=== PATIENT | male | born 1990 | race Caucasian/White ===

== ENCOUNTER 2017-11-26 19:11 | Emergency (ER) | payer OTHER, MEDICAID, SELFPAY ==
[2017-11-26 19:12] VITALS: BP 151/101; PULSE 89; RESP 20; TEMP 36.7; O2SAT 95; BMI 37.1
--- NOTE | 2017-11-26 20:02 | CT_ITS ---
STUDY: CT BRAIN WITHOUT CONTRAST REASON FOR EXAM: Male, 27 years old. TOPETE X 4 DAYS, CP AND STRESS, HX HTN RADIATION DOSAGE (If Supplied By Facility): CTDIvol = ( 44.99 ) mGy, DLP = ( 829.85 ) mGycm TECHNIQUE: Transaxial CT imaging of the brain was performed without administration of intravenous contrast material. Individualized dose optimization techniques were used for this CT. COMPARISON: 04.09.17 FINDINGS: Normal soft tissue structures. Normal calvarium. Normal size ventricles and extra-axial spaces for the patient's age. Normal white matter tracts of the cerebral hemispheres. Normal basal ganglia and thalami. Normal brainstem. Normal cerebellum. There is no intracranial hemorrhage. There are no findings of an acute ischemic infarction. Normal visualized paranasal sinuses. CT/Brain/Head without Contrast IMPRESSION: Normal unenhanced CT scan of the brain. Electronically Signed: Suleiman Delgado MD at 21:00 EDT , Service support ,
[2017-11-26 20:24] LABS: Absolute Lymphocyte Count 2.53 X10^3/ul (0.83-4.51); Absolute Neutrophil Count 6.1 X10^3/uL (2.0-7.7); Basophil# 0.02 X10^3/uL; Basophil% 0.2 % (0-1); Eosinophils% 3.1 % (0-5); Hematocrit 47.5 % (40-54); Hemoglobin 15.8 g/dl (13.0-16.5); Lymphocyte # 2.53 X10^3/ul (4.0); Lymphocyte % 26.3 % (19-41); Mean Corp Hgb Conc 33.3 g/gl (32-36); Mean Corpuscular Hgb 30.5 pg (27.0-32.0); Mean Corpuscular Volume 91.7 fL (80-94); Mean Platelet Vol. 9.2 fl (6.2-12.0); Monocyte% 7.3 % (0-10); Neutrophil # 6.06 X10^3/uL (2.7-7.7); Neutrophil % 62.9 % (47-70); POSITIVE COUNT NO; POSITIVE DIFFERENTIAL NO; POSITIVE MORPHOLOGY NO; Platelet Count 229 K/mm3 (150-450); RBC Distribution Width CV 13.4 % (11.6-14.6); RBC Distribution Width SD 44.4 fl (35.1-43.9); Red Blood Count 5.18 M/mm3 (4.6-6.2); White Blood Count 9.6 K/mm3 (4.4-11.0)
--- NOTE | 2017-11-26 20:28 | EKG12_ITS ---
Test Reason : CP Blood Pressure : / mmHG Vent. Rate : 066 BPM Atrial Rate : 066 BPM P-R Int : 164 ms QRS Dur : 104 ms QT Int : 382 ms P-R-T Axes : 045 046 037 degrees QTc Int : 400 ms Normal sinus rhythm Normal ECG Confirmed by NANDO RANGEL, MISSAEL ([id number]), assignment editor WESTON TALAMNATES ([id number]) on 12/05/2017 2:53:55 PM Referred By: MARY ANN Confirmed By:MISSAEL COLLIER MD
[2017-11-26] MEDS: Ketorolac 30 MG/ML Syringe IV (20:29)
[2017-11-26] MEDS: 0.9% Normal Saline 1,000 ML 999 ML IV (20:29)
[2017-11-26 20:50] LABS: Anion Gap 7 (5-15); BUN 13 mg/dL (7-18); Calcium,Total 8.7 mg/dL (8.5-10.1); Chloride 107 mmol/L (98-107); Creatinine, Serum 0.93 mg/dL (0.70-1.30); EST Glomerular Filtration Rate 103 mL/min (>60); Est Glom Filt Rate - Afr Amer 125 mL/min (>60); Estimated Creatinine Clearance 150.36 ml/min; Glucose 89 mg/dL (74-106); Potassium 4.3 mmol/L (3.5-5.1); Sodium Level 143 mmol/L (136-145)
--- NOTE | 2017-11-26 21:28 | ED.DCSUM_ITS ---
- ER Visit Summary Date of Service: 11/26/17 Chief Complaint: Headache and chest pain History of Present Illness: The patient is a 27 M presenting for evaluation secondary to headache and chest pain. Patient states over the course last 5 days he has developed a occipital headache that was gradual onset and it has been continuous and throbbing. Associated with some photophobia and lightheadedness. Patient denies any recent head injuries. Denies any neck stiffness skin rashes visual changes numbness or weakness. Patient states that today he seemed to develop some anterior chest pain at about 1400. It is worse with palpation with taking a deep breath and feels consistent with when he had costochondritis in the past. Patient denies any cardiovascular risk factors. Review of systems otherwise negative. Physical Examination: Vital signs: Within normal limits General: Well-nourished well-developed no acute distress Head: Normocephalic atraumatic, no temporal artery tenderness or vesicular rash noted. No sinus tenderness to percussion. Eyes: PERRLA, EOMI. Direct funduscopy shows no evidence of hemorrhage or papilledema. Neck: Supple, no lymphadenopathy, no JVD no meningismus. Negative Brudzinski, Kernig, jolt, and heel strike Cardiovascular: Heart regular rate and rhythm no murmurs Respiratory: Lung sounds clear to auscultation bilaterally no respiratory distress Abdomen: Soft, nontender Extremities: Nontender, no edema Skin: Normal color, no rash, no evidence of petechia Neuro: Alert and oriented ?4, cranial nerves II through XII intact, normal strength, sensation Test Results: EKG shows a sinus rhythm at [address] segments normal T waves. CBC chemistry troponin negative. CT brain found to be negative Emergency Department Course and Treatment: Patient presented with a headache and chest pain. He was evaluated with an EKG and blood work there were found to be unremarkable on the CT brain that was found to be unremarkable. Patient was treated with Imitrex and Toradol. He did have improvement on subsequent reexamination. At this point the patient's SYMONE risk score is 1 for potentially undertreated hypertension, I do not believe he requires admission for chest pain as this seems rather atypical a very reproducible and similar to costochondritis. His headache seems consistent with migraine headache. Patient was discharged with continued conservative management Disposition: Discharge Impression: 1. Migraine headache 2. Chest wall pain This note was generated with Dragon dictation software. It may contain incorrect words, spelling, and punctuation that were not noted in review of the chart prior to signing ED Disposition - Plan for ED Patient: Disposition: Home or Assisted Living Chief Complaint: Headache Diagnosis: Chest pain, Headache Instructions: ED Chest Pain Costochondritis, ED Headache Migraine Prescriptions: Metoclopramide [Reglan] 10 mg PO 4X/DAY PRN #20 tab PRN Reason: Headache Referrals: Crystal Tellez, TRACTOR CRANE OPERATOR-C [Primary Care Provider] - 3-5 Days if not improving
[2017-11-26] MEDS: SUMAtriptan 6 MG/0.5 ML Vial SC (21:49)
[2017-11-26 22:08] VITALS: BP 159/97; PULSE 65; RESP 17
== END 2017-11-26 22:09 | disposition home or self-care (01) ==
PROVIDERS: Emergency Provider Emergency Medicine; Family Provider Nurse Practitioner Family; PCP Nurse Practitioner Family
DX: G43.909 Migraine, unspecified, not intractable, without status migrainosus (principal); R07.89 Other chest pain
CPT/HCPCS: 70450; 80048; 84484; 85025; 93005; 96361; 96372; 96374; 99283; J7030; A4216; J3030

== ENCOUNTER 2019-06-21 08:41 | Emergency (ER) | payer OTHER, SELFPAY ==
[2019-06-21 08:43] VITALS: BP 165/97; PULSE 79; RESP 17; TEMP 36.2; O2SAT 98; BMI 38.9
--- NOTE | 2019-06-21 08:55 | ED.VIS.GEN ---
History of Present Illness Chief Complaint: Chest Pain Informant: Patient Onset: Today Context: Sudden Onset Timing: Intermittent Current Severity: Severe Worsened by: deep breathing Relieved by: nothing Narrative: Patient is a 29-year-old male with history of hypertension, currently on any medications presenting with headache and chest pain. Patient states he was at work since 5 AM. 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 He suddenly developed a frontal headache. He then also developed chest pain. He states it is like a pressure in the center of his chest. It is present for a couple minutes and then goes away. Deep breathing does seem to make it worse. He states he is never had anything like this before. He has had headaches in the past but never like this. He denies any vision changes. He denies any swelling of his legs, recent travel or history of DVT/PE. He is not on any hormonal medications. He denies any recent cold symptoms. He denies any cough. He feels short of breath with the chest tightness. He denies any other complaints at this time. He denies any recent illnesses. Past Medical History - Allergies and Home Meds Allergies/Adverse Reactions: Allergies No Known Allergies Allergy (Verified 06/21/19 08:42) Primary Care Physician: Crystal Tellez NP-C [Primary Care Provider] - Past Medical History: - - Hypertension Smoking Status: Never smoker Review of Systems Cardiovascular: Reports: Chest pain Respiratory: Reports: Dyspnea Neurological: Reports: Headache Physical Exam Vital Signs/Narrative: Vital Signs Temp Pulse Resp BP Pulse Ox 06/21/19 08:43 97.1 F L 79 17 165/97 H 98 Inital Vital Signs reviewed: Yes General: Well nourished, Well developed, No Acute Distress Head: Normocephalic, Atraumatic Eyes: Perrl, EOMI ENT: Moist mucous membranes, No rhinorrhea Neck: Supple, Nontender Cardiovascular: Regular rate, Regular rhythm, No murmurs Respiratory: No distress, CTA bilaterally, Chest tenderness - sternal area Abdomen: Soft, Nontender, Nondistended, Normal bowel sounds Back: Nontender, Normal Inspection Extremities: Nontender, No edema Skin: Normal color, No rash Neurological: Alert, Oriented x3, Cranial nerves II-XII grossly intact, Normal Strength, Normal Sensation Psychological: Normal affect, Normal Mood Diagnostic/Tx/Re-eval Chest X-Ray - ED: 2 View, Read by ED Physician, Read by Radiologist, No Acute Disease Laboratory Data 06/21/19 06/21/19 09:04 09:04 WBC 7.8 RBC 5.15 Hgb 15.4 Hct 46.2 MCV 89.7 MCH 29.9 MCHC 33.3 RDW Std Deviation 41.4 RDW Coeff of David 12.6 Plt Count 243 MPV 9.0 Immature Gran % (Auto) 0.400 Neut % (Auto) 55.1 Lymph % (Auto) 31.8 Davidson % (Auto) 6.4 Eos % (Auto) 5.9 H Baso % (Auto) 0.4 Absolute Neuts (auto) 4.3 Absolute Lymphs (auto) 2.48 Nucleated RBC % 0 Sodium 139 Potassium 4.3 Chloride 108 H Carbon Dioxide 27.0 Anion Gap 4 L BUN 13 Creatinine 0.92 Estim Creat Clear Calc 145.45 Est GFR (MDRD) Af Amer 125 Est GFR (MDRD) Non-Af 103 BUN/Creatinine Ratio 14.1 Glucose 98 Calcium 9.0 Troponin I < 0.015 - Rhythm Strip Rhythm Strip: Sinus Rhythm Rate: 68 Ectopy: None - EKG Initial EKG Interpretation: Sinus Rhythm, - - Normal sinus rhythm Normal intervals Normal axis Normal ST segments - Medical Decision Making She is evaluated for chest pain that occurred this morning while at work. He also has associated headache. He has normal neurologic exam. Vital signs are significant for hypertension. Patient is initially given morphine for his pain. Lab work including EKG and troponin are normal. Patient is low risk for ACS with a SYMONE score of 4. Discussed heart score and delta troponin with patient. As he does have hypertension, obesity and family history of ACS he elects to stay for delta troponin. Repeat troponins also negative. Patient is improvement of his pain with the emergency room. I suspect his pain is costochondritis versus pleurisy. Patient is PE RC negative and I do not suspect PE. D-dimer is not obtained because he is PE RC negative. Patient is given a work note for today. He is encouraged to rest. He is instructed to follow-up with his primary care provider as he might need to restart his lisinopril. Patient is improvement of his headache with Toradol and fluids. Patient is counseled on signs and symptoms requiring return to the emergency room. Patient verbalizes agreement and understand this plan. Patient discharged home in stable and improved condition. ED Disposition - Plan for ED Patient: Disposition: Home or Assisted Living Diagnosis: Chest pain, Headache Instructions: CHEST PAIN, Uncertain Cause, HEADACHE, Unspecified Referrals: Crystal Tellez NP-C [Primary Care Provider] - Additional Instructions: I do not think your chest pain was cardiac related or associated with a heart attack today. Please follow-up with your primary care provider as you might need to restart your blood pressure medication. Return to the emergency room if you have worsening symptoms. Please go home and rest today. Drink plenty of fluids.
--- NOTE | 2019-06-21 08:58 | RAD_ITS ---
STUDY: X-RAY CHEST REASON FOR EXAM: Male, 29 years old. Chest pain TECHNIQUE: PA and lateral views of the chest. COMPARISON: 09/17/2017 FINDINGS: The lungs are clear and expanded. There is no demonstrated pleural abnormality. Normal size heart. Normal mediastinum and maye. Normal visualized pulmonary arteries. Normal visualized aortic arch and descending thoracic aorta. Normal visualized thoracic spine. Normal visualized ribs, clavicles, and shoulders. There is no demonstrated abnormality of the visualized soft tissue structures of the upper abdomen. RAD/Chest PA and Lateral IMPRESSION: Normal x-ray examination of the chest. Electronically Signed: Tobias López DO at 10:04 EDT Tel , Service support ,
--- NOTE | 2019-06-21 08:58 | EKG12_ITS ---
Test Reason : CP Blood Pressure : / mmHG Vent. Rate : 068 BPM Atrial Rate : 068 BPM P-R Int : 172 ms QRS Dur : 102 ms QT Int : 396 ms P-R-T Axes : 036 028 027 degrees QTc Int : 421 ms Normal sinus rhythm Normal ECG Confirmed by CHRIS RANGEL, ESTELA ([id number]), film or videotape editor FAUSTO SHETH ([id number]) on 06/23/2019 1:48:35 PM Referred By: ROXANNE Confirmed By:ESTELA PEREZ MD
--- NOTE | 2019-06-21 08:58 | CT_ITS ---
STUDY: CT BRAIN WITHOUT CONTRAST REASON FOR EXAM: Male, 29 years old. Headache RADIATION DOSAGE (If Supplied By Facility): CTDIvol = ( 60.81 ) mGy, DLP = ( 1089.89 ) mGycm TECHNIQUE: Transaxial CT imaging of the brain was performed without administration of intravenous contrast material. Individualized dose optimization techniques were used for this CT. COMPARISON: November 26, 2017 FINDINGS: Normal soft tissue structures. Normal calvarium. Normal size ventricles and extra-axial spaces for the patient's age. Normal white matter tracts of the cerebral hemispheres. Normal basal ganglia and thalami. Normal brainstem. Normal cerebellum. There is no intracranial hemorrhage. There are no findings of an acute ischemic infarction. Normal visualized paranasal sinuses. CT/Brain/Head without Contrast IMPRESSION: Normal unenhanced CT scan of the brain. Electronically Signed: Tobias López DO at 10:06 EDT Tel , Service support ,
[2019-06-21 09:15] LABS: Absolute Lymphocyte Count 2.48 X10^3/uL (0.83-4.51); Absolute Neutrophil Count 4.3 X10^3/uL (2.0-7.7); Basophil# 0.03 X10^3/uL; Basophil% 0.4 % (0-1); Eosinophil# 0.46 X10^3/uL; Eosinophils% 5.9 % (0-5); Hematocrit 46.2 % (40-54); Hemoglobin 15.4 g/dL (13.0-16.5); Lymphocyte # 2.48 X10^3/ul (4.0); Lymphocyte % 31.8 % (19-41); Mean Corp Hgb Conc 33.3 g/dL (32-36); Mean Corpuscular Hgb 29.9 pg (27.0-32.0); Mean Corpuscular Volume 89.7 fL (80-94); Monocyte% 6.4 % (0-10); NRBC Flagged by Analyzer 0 % (0-5); Neutrophil # 4.29 X10^3/uL (2.7-7.7); Neutrophil % 55.1 % (47-70); Platelet Count 243 K/mm3 (150-450); RBC Distribution Width CV 12.6 % (11.6-14.6); RBC Distribution Width SD 41.4 fl (35.1-43.9); Red Blood Count 5.15 M/mm3 (4.6-6.2); White Blood Count 7.8 K/mm3 (4.4-11.0)
[2019-06-21 09:17] VITALS: BP 118/91; PULSE 69; RESP 15; O2SAT 96
[2019-06-21] MEDS: Morphine 4 MG/ML Syringe IV (09:18)
[2019-06-21 09:33] LABS: Anion Gap 4 (5-15); BUN 13 mg/dL (7-18); BUN/Creat Ratio 14.1 RATIO (10-20); Chloride 108 mmol/L (98-107); Creatinine, Serum 0.92 mg/dL (0.70-1.30); EST Glomerular Filtration Rate 103 mL/min (>60); Est Glom Filt Rate - Afr Amer 125 mL/min (>60); Estimated Creatinine Clearance 145.45 ml/min; Glucose 98 mg/dL (74-106); Potassium 4.3 mmol/L (3.5-5.1); Sodium Level 139 mmol/L (136-145)
[2019-06-21 10:54] VITALS: BP 138/93; PULSE 50; RESP 14; O2SAT 97
[2019-06-21] MEDS: Ketorolac 15 MG/ML Vial IV (10:54)
[2019-06-21] MEDS: 0.9% Normal Saline 1,000 ML 999 ML IV (10:54)
[2019-06-21 12:02] VITALS: BP 125/69; PULSE 62; RESP 15; O2SAT 98
[2019-06-21 13:08] VITALS: BP 125/78; PULSE 57; RESP 16; O2SAT 98
== END 2019-06-21 13:09 | disposition home or self-care (01) ==
PROVIDERS: Emergency Provider Emergency Medicine; Family Provider Nurse Practitioner Family; PCP Nurse Practitioner Family
DX: R07.9 Chest pain, unspecified (principal); R51 Headache; I10 Essential (primary) hypertension
CPT/HCPCS: 70450; 71046; 80048; 84484; 85025; 93005; 96361; 96374; 96375; 99284; J7030; A4216

== ENCOUNTER 2022-09-20 09:16 | Emergency (ER) | payer MEDICAID, SELFPAY ==
[2022-09-20 09:16] VITALS: PULSE 82; RESP 18; TEMP 36.6; O2SAT 97; BMI 38.9
--- NOTE | 2022-09-20 09:30 | ED.VIS.GI ---
HPI HPI - GI History of Present Illness Chief Complaint: Abd Pain Informant: patient Narrative Narrative: Worsening upper abdominal pain since midnight. He ate [employer] last evening. Symptoms with wax and wane. Nausea with pain. Currently able to talk. Has had on and off symptoms for past few months has not had this evaluated to being self-limited. No abdominal surgeries. He started on an increase in metformin to 1000 mg twice daily 2 weeks ago for diabetes. History of hypertension. No fevers. Pain isolated currently epigastric. Patient reported half hour try to eat a small sandwich bite however pain worsened. Prior similar symptoms: Yes PFSH PFSH Home Medications atorvastatin 10 mg tablet 10 mg PO QHS 09/20/22 [History Last Taken Unknown] lisinopril 20 mg tablet 20 mg PO DAILY 09/20/22 [History Last Taken Unknown] metformin 1,000 mg tablet 1,000 mg PO BID 09/20/22 [History Last Taken Unknown] omeprazole 40 mg capsule,delayed release 40 mg PO DAILY #30 caps 09/20/22 [Rx Last Taken Unknown] ondansetron 4 mg disintegrating tablet 4 mg PO Q6H PRN nausea and vomiting #10 tabs 09/20/22 [Rx Last Taken Unknown] sertraline 25 mg tablet 25 mg PO QHS 09/20/22 [History Last Taken Unknown] Allergy/AdvReac Type Severity Reaction Status Date / Time No Known Allergies Allergy Verified 09/20/22 09:18 Social History Smoking Status: Current every day smoker tobacco type: cigarettes ROS ROS ED Constitutional Constitutional ED: Denies chills, fever(s) or sweats Eyes Eyes: Denies change in vision ENT ENT ED: Denies dysphagia or sore throat Cardiovascular Cardiovascular: Denies chest pain, leg edema, palpitations or racing heartbeat Respiratory/Chest Respiratory/Chest: Denies cough, dyspnea or dyspnea on exertion Gastrointestinal Gastrointestinal: Reports abdominal pain; Denies diarrhea, nausea or vomiting Genitourinary Genitourinary ED: Denies dysuria, hematuria or urinary frequency Musculoskeletal Musculoskeletal: Denies back pain, extremity pain or neck pain Integumentary Denies rash or wounds Neurologic Neurologic: Denies headache(s), paresthesias or weakness EXAM Physical Exam Const Vital Signs: 09/20/22 09:16 09/20/22 10:32 09/20/22 16:23 Temperature 97.9 F 97.9 F Temperature Source Temporal Oral Pulse Rate 82 71 81 Respiratory Rate 18 18 18 Blood Pressure 149/94 H 132/89 H Blood Pressure Mean 112 Pulse Ox 97 98 Oxygen Delivery Method Room Air Room Air Positive well nourished and well developed General Appearance ED: well developed and NAD HEENT Reports moist mucous membranes normocephalic and atraumatic Eyes PERRL, EOMs intact bilaterally and conjunctivae normal General Eye ED: Yes normal appearance of both eyes Neck no lymphadenopathy and supple General: Negative for tenderness Chest Wall Chest: Negative for tenderness Resp normal respiratory effort and normal air movement Effort and Inspection: symmetric chest movement; Negative for respiratory distress Cardio regular rate, regular rhythm and no murmurs Peripheral Pulses: pulses 2+ throughout GI normal to inspection, nondistended, normoactive bowel sounds GI Narrative: Tender epigastrium mild right upper quadrant. Negative McBurney's. Palpation: Negative for guarding or rebound tenderness present Back/Spine no CVA tenderness and no thoracic nor lumbar tenderness Extremity normal to inspection General Extremety ED: Negative for edema or tenderness General Extremity: Negative for edema Neuro oriented x3 and no sensory deficits noted Sensorium / Orientation: awake and alert Skin no rashes or lesions noted and no wounds MDM MDM MDM Narrative Medical decision making narrative: Patient tender to palpate epigastric right upper quadrant with no guarding or rebound. Differential includes cholecystitis versus symptomatic cholelithiasis versus gastritis, peptic ulcer or pancreatitis. Denies any bloody stools. Nonsurgical abdomen. Abdominal labs ordered and reviewed by myself all normal except for mild elevated ALT at 67 total bili 1.3 lipase was 79 normal range.. Treated with Pepcid were added Levsin. Due to patient eating prior to arrival or delay gallbladder ultrasound was obtained. This was reviewed interpreted myself and agree with radiologist findings. Results negative for acute structural findings fatty liver noted. Patient reassured on findings. Discussed likely gastritis symptoms he started on PPIs Zofran as needed. He will monitor for any bloody stools. He is given follow-up with GI as an outpatient. Return precautions. All questions were answered. Lab Data Attestation: I reviewed the patient's lab results. Labs: Laboratory Results - last 24 hr 09/20/22 09/20/22 09:44 09:44 WBC 6.9 RBC 5.13 Hgb 15.9 Hct 46.0 MCV 89.7 MCH 31.0 MCHC 34.6 RDW Std Deviation 40.5 RDW Coeff of David 12.3 Plt Count 243 MPV 9.2 Immature Gran % (Auto) 0.100 Neut % (Auto) 54.9 Lymph % (Auto) 33.6 [place]bon % (Auto) 6.2 Eos % (Auto) 4.8 Baso % (Auto) 0.4 Absolute Neuts (auto) 3.8 Absolute Lymphs (auto) 2.32 Nucleated RBC % 0 Sodium 139 Potassium 4.2 Chloride 108 H Carbon Dioxide 25.0 Anion Gap 6 BUN 12 Creatinine 0.95 Estim Creat Clear Calc 137.05 Est GFR (MDRD) Af Amer 118 Est GFR (MDRD) Non-Af 98 BUN/Creatinine Ratio 12.6 Glucose 183 H Calcium 8.8 Total Bilirubin 1.30 H Direct Bilirubin 0.29 AST 25 ALT 67 H Alkaline Phosphatase 72 Total Protein 7.2 Albumin 3.7 Globulin 3.5 Lipase 79 Radiography Diagnostic Testing: Clinical Impression(s) from Imaging Studies Gallbladder Ultrasound 09/20/22 11:37 IMPRESSION: Hepatomegaly and fatty infiltration of the liver. Electronically Signed: Timur Betancourt MD at 15:19 EST , Discharge Plan Triage Chief Complaint: Abd Pain ED Provider: Pino Van Dx/Rx/DC Orders Clinical Impression: Gastritis, Abdominal pain, Fatty liver Instructions: Abdominal Pain, ED Gastritis (Adult) Prescriptions: New omeprazole 40 mg capsule,delayed release(DR/EC) 40 mg PO DAILY Qty: 30 0RF ondansetron 4 mg tablet,disintegrating 4 mg PO Q6H PRN (Reason: nausea and vomiting) Qty: 10 0RF No Action atorvastatin 10 mg Tablet 10 mg PO QHS lisinopril 20 mg Tablet 20 mg PO DAILY metformin 1,000 mg tablet 1,000 mg PO BID Label Comments: TAKE 1 TABLET BY MOUTH TWICE A DAY sertraline 25 mg Tablet 25 mg PO QHS Primary Care Provider: Crystal Tellez NP Referrals: Freddie Newsome DO [Med Staff - Active Staff] - 1-2 Weeks Crystal Tellez PATIENT EXPERIENCE COORDINATOR, PATIENT EXPERIENCE COORDINATOR-C [Primary Care Provider] - 1 Week Activity Restrictions/Additional Instructions: Gallbladder ultrasound normal. Fatty liver on ultrasound. Labs stable. ALT 67 slightly elevated. Take medication as prescribed. Follow-up as an outpatient return if any worsening symptoms. Disposition Disposition: Home, Self Care Discharge Date/Time: 09/20/22 16:24
[2022-09-20] MEDS: 0.9% Normal Saline 1,000 ML 125 ML IV (09:50)
[2022-09-20 09:51] LABS: Absolute Lymphocyte Count 2.32 X10^3/uL (0.83-4.51); Absolute Neutrophil Count 3.8 X10^3/uL (2.0-7.7); Basophil# 0.03 X10^3/uL; Basophil% 0.4 % (0-1); Eosinophil# 0.33 X10^3/uL; Eosinophils% 4.8 % (0-5); Hemoglobin 15.9 g/dL (13.0-16.5); Lymphocyte # 2.32 X10^3/ul (0.83-4.51); Lymphocyte % 33.6 % (19-41); Mean Corp Hgb Conc 34.6 g/dL (32-36); Mean Corpuscular Volume 89.7 fL (80-94); Mean Platelet Vol. 9.2 fl (6.2-12.0); Monocyte# 0.43 X10^3/uL; Monocyte% 6.2 % (0-10); NRBC Flagged by Analyzer 0 % (0-5); Neutrophil # 3.79 X10^3/uL (2.7-7.7); Neutrophil % 54.9 % (47-70); Platelet Count 243 K/mm3 (150-450); RBC Distribution Width CV 12.3 % (11.6-14.6); RBC Distribution Width SD 40.5 fl (35.1-43.9); Red Blood Count 5.13 M/mm3 (4.6-6.2); White Blood Count 6.9 K/mm3 (4.4-11.0)
[2022-09-20] MEDS: Famotidine 200 MG/20 ML MDV 20 MG in 0.9% Normal Saline (Pres. free 8 ML 300 MG IV (09:54)
[2022-09-20 10:27] LABS: AST(SGOT) 25 U/L (15-37); Alanine Aminotransfer ALT/SGPT 67 U/L (16-61); Albumin, Serum 3.7 g/dL (3.2-5.0); Alkaline Phosphatase 72 U/L (45-117); Anion Gap 6 (5-15); BUN 12 mg/dL (7-18); BUN/Creat Ratio 12.6 RATIO (10-20); Bilirubin, Direct 0.29 mg/dL (0.00-0.30); Calcium,Total 8.8 mg/dL (8.5-10.1); Chloride 108 mmol/L (98-107); Creatinine, Serum 0.95 mg/dL (0.70-1.30); EST Glomerular Filtration Rate 98 mL/min (>60); Est Glom Filt Rate - Afr Amer 118 mL/min (>60); Estimated Creatinine Clearance 137.05 ml/min; Globulin 3.5 g/dL (2.2-4.2); Glucose 183 mg/dL (74-106); Lipase 79 U/L (73-393); Potassium 4.2 mmol/L (3.5-5.1); Protein, Total 7.2 g/dL (6.4-8.2); Sodium Level 139 mmol/L (136-145)
[2022-09-20] MEDS: Hyoscyamine Sulfate 0.125 MG Tablet 0.25 MG SL (10:27)
[2022-09-20 10:32] VITALS: BP 149/94; PULSE 71; RESP 18; TEMP 36.6; O2SAT 98
--- NOTE | 2022-09-20 11:37 | US_ITS ---
STUDY: ABDOMINAL ULTRASOUND - RIGHT UPPER QUADRANT REASON FOR VISIT: Male, 32 years old pain -- scan at 2:30 -- EPIGASTRIC PAIN X 1 DAY -- PATIENT ATE AT 9:00 AM SCAN AT 2:30 TECHNIQUE: Ultrasound evaluation of the right upper quadrant was performed with real-time and static arshad-scale imaging. TECHNICAL QUALITY: Adequate. COMPARISON: None. FINDINGS: Liver: The liver is enlarged and measures 20.9 cm. There is increased echogenicity consistent with fatty infiltration. The bile ducts are within normal limits. There is hepatic color flow. The direction of portal flow is hepatopetal. There is no demonstrated mass lesion. Gallbladder: Normal distended gallbladder. The gallbladder wall measures 2.1 mm. There is a negative sonographic Mckeon''s sign. There is no pericholecystic fluid. There are no gallstones. Common Bile Duct (C.B.D.): The common bile duct measures 5.3 mm. Pancreas: Normal size of the head, body and tail of the pancreas. There is increased echogenicity of the pancreas. There is no demonstrated pancreatic mass or cyst. Right Kidney: Normal size of the right kidney. The right kidney measures 13.3 cm x 5.3 cm x 5.5 cm. Normal renal cortex. The right cortex measures 1.8 cm. There is no demonstrated renal mass or cyst. There is no right hydronephrosis. US/Gallbladder IMPRESSION: Hepatomegaly and fatty infiltration of the liver. Electronically Signed: Timur Betancourt MD at 15:19 EST ,
[2022-09-20 16:23] VITALS: BP 132/89; PULSE 81; RESP 18
== END 2022-09-20 16:24 | disposition home or self-care (01) ==
PROVIDERS: Emergency Provider Emergency Medicine; PCP Nurse Practitioner Family; Visit Provider Emergency Medicine
DX: K29.70 Gastritis, unspecified, without bleeding (principal); E11.9 Type 2 diabetes mellitus without complications; F17.210 Nicotine dependence, cigarettes, uncomplicated; I10 Essential (primary) hypertension; K76.0 Fatty (change of) liver, not elsewhere classified; R10.816 Epigastric abdominal tenderness; Z79.899 Other long term (current) drug therapy; Z79.84 Long term (current) use of oral hypoglycemic drugs
CPT/HCPCS: 76705; 80048; 80076; 83690; 85025; 96365; 99284; J7030; A4216; J3490